=== PATIENT | female | born 1980 | race Caucasian/White ===

== ENCOUNTER 2019-10-29 15:24 | Outpatient (CLI) | payer OTHER ==
--- NOTE | 2019-10-29 17:47 | MRI Report ---
Reason: DISORIENTATION, HEARING CHANGES, VISUAL LOSS Procedure Date: 10/29/2019 Accession Number: [id number] / [id number] Procedure: MRI - Brain W/O CPT Code: Final Report FULL RESULT: EXAM: MRI BRAIN WITHOUT CONTRAST EXAM DATE: 10/29/2019 05:06 PM. CLINICAL HISTORY: DISORIENTATION, HEARING CHANGES, VISUAL LOSS. COMPARISON: None. TECHNIQUE: Multiplanar, multisequence T1-weighted and fluid-sensitive MR sequences of the brain were performed. Sequences optimized for routine evaluation. Other: None. IV Contrast: None. FINDINGS: No abnormal restricted diffusion signal or magnetic susceptibility is present in the brain parenchyma. No cerebellar tonsillar ectopia is present. There are a few punctate FLAIR hyperintensities in the cerebral hemisphere white matter. These are predominantly subcortical in location with frontal lobe predominance. There is one focus on the left near the superior aspect of the atrial trigone image 13 series 701. No abnormal T2 or FLAIR hyperintensities are present in the infratentorial brain. There is an expected flow void in the major intracranial vessels at the skull base and in the superior sagittal sinus. No mass is present in either orbit or in either Meckel's cave. IMPRESSION: 1. FLAIR hyperintensities in the cerebral hemisphere white matter bilaterally are nonspecific. Commonly, these are seen secondary to small vessel ischemic change or in association with certain headache syndromes. White matter lesions have been described in many other entities, including in demyelinating processes. 2. No intracranial mass. [facility]
== END 2019-10-29 15:25 | disposition home or self-care (01) ==
LOC: DI 15:24
PROVIDERS: ATTEND Family Medicine
DX: H53.8 Other visual disturbances (principal); R41.0 Disorientation, unspecified; R44.9 Unspecified symptoms and signs involving general sensations and perceptions; R20.0 Anesthesia of skin
CPT/HCPCS: 70551

== ENCOUNTER 2020-12-08 12:07 | Outpatient (CLI) | payer OTHER ==
[2020-12-08] MEDS ORDERED: GADOBUTROL 10 MMOL/10 ML VIAL ONE (12:48)
[2020-12-08] MEDS ORDERED: GADOBUTROL 10 MMOL/10 ML VIAL IVP ONE (13:20)
--- NOTE | 2020-12-08 13:52 | MRI Report ---
PROCEDURE: Brain W/WO INDICATIONS: FATIGUE, RECURRENT VISUAL CHANGES CONTRAST: IV CONTRAST: Gadavist ml: 9.5 TECHNIQUE: Noncontrast axial T1 spin echo, axial T2 fast spin echo, sagittal and axial FLAIR, coronal T2 fast sp in echo, axial gradient echo, axial diffusion and ADC through the brain. After the administration of contrast, axial and coronal T1 spin echo with fat saturation through the brain. COMPARISON: Brain MRI dated 10/29/2019 FINDINGS: Image quality: Excellent. CSF spaces: Basal cisterns are patent. No extra-axial fluid collections. Ventricles are normal in size and shape. Brain: No midline shift. No intracranial bleeds or masses. No abnormal intracranial enhancement. M inimal bifrontal lobe predominant high FLAIR signal within the periventricular and subcortical white matter is unchanged.. The brainstem appears normal. Diffusion-weighted images demonstrate no acute ischemic insults. No chronic ischemic insults. Normal intravascular flow voids are present. Skull and face: Calvarial marrow is normal in signal. Orbits appear normal. Sinuses: Sinuses and mastoids appear clear. IMPRESSION: 1. No acute process. 2. No change in minimal bifrontal predominant white matter disease. Differential considerations inclu de early small vessel disease, diabetes mellitus, vasculitides, migraines, and demyelinating disorder s, such as multiple sclerosis. 3. No recent infarct. 4. No explanation for visual changes. Reviewed by: Nic Rahman MD on 12/08/2020 1:50 PM PST Approved by: Nic Rahman MD on 12/08/2020 1:50 PM PST Station ID: [id number]
== END 2020-12-08 12:08 | disposition home or self-care (01) ==
LOC: DI 12:07
PROVIDERS: ATTEND Student in an Organized Health Care Education/Training Program
DX: R53.83 Other fatigue (principal); R90.82 White matter disease, unspecified
CPT/HCPCS: 70553; A9585